=== PATIENT | female | born 1945 | race Caucasian/White ===

== ENCOUNTER 2020-12-18 09:07 | Day surgery (SDC) | payer MEDICARE, MEDICAID, SELFPAY ==
--- NOTE | 2020-12-16 09:29 | HP.PCM_ITS ---
History and Physical Date of Admission: 12/18/20 Henrietta Cortez Physician Specialty: DINKEY ENGINE OPERATOR H&P ? Signed Encounter Date: 12/08/2020 Expand AllCollapse All Expand All by Default Hide copied text Hover for details Pre-Op History and Physical ? HPI: The patient is a 75 year old female presenting for discussion regarding hysteroscopy, D&C, polypectomy. Patient was seen in the office for Endo C and EMB for an endometrial mass. Pathology revealed a benign endometrial polyp. Discussion with the patient as to importance of removal of this mass ensuring that it is benign. Patient would like to proceed with surgery at this time. ? She is scheduled for Hysteroscopy D&C, polypectomy for Endometrial polyp, thickened Endometrium, PMB on 12/18/20. Procedure discussed along with risks, benefits and complications. Other alternatives discussed for management. Consent form signed? Yes. ? ? PAST MEDICAL HISTORY PAST MEDICAL HISTORY Diagnosis Date ? Chronic cough 05/31/2016 ? since 1988 ? Diverticulosis 10/31/2013 ? Elevated blood pressure reading without diagnosis of hypertension 05/31/2016 ? Essential hypertension 08/26/2016 ? Hiatal hernia with GERD and esophagitis 05/31/2016 ? Non morbid obesity due to excess calories 05/31/2016 ? Osteopenia 05/31/2016 ? Pharyngoesophageal dysphagia 08/17/2017 ? Primary osteoarthritis of left knee 01/20/2017 ? ? PAST SURGICAL HISTORY PAST SURGICAL HISTORY Procedure Laterality Date ? APPENDECTOMY ? 1966 ? COLONOSCOP W/ OR W/O BRSH SPEC ? 10/31/2013 ? Colonoscopy ? EGD ? 10/31/2017 ? [place] ? EGD W/O OR W/BRUSH/WASH ? 10/27/2015 ? EGD ? LIGATE FALLOPIAN TUBE ? 1979 ? Tubal ligation ? PAST SURGICAL HISTORY OF Right March2008 ? ORIF right wrist fracture ? REMOVAL GALLBLADDER ? 1985 ? Cholecystectomy ? ? ? CURRENT MEDICATIONS Current Outpatient Medications Medication Sig Dispense Refill ? amLODIPine (NORVASC) 5 mg tablet Take 1 tablet by mouth once daily. 90 tablet 3 ? chlorthalidone (HYGROTON) 25 mg tablet Take 1 tablet by mouth once daily. 90 tablet 3 ? mometasone (ELOCON) 0.1 % cream Apply to affected area once daily. Rash. 45 g 0 ? omeprazole (PRILOSEC) 20 mg capsule Take 1 capsule by mouth once daily. 90 capsule 3 ? losartan (COZAAR) 100 mg tablet Take 1 tablet by mouth once daily. 90 tablet 3 ? multivitamin,qj-nqwf-brqqkyqe (COMPLETE MULTIVITAMIN) tab Take 2 tablets by mouth once daily. ? ? ? calcium carbonate-vitamin D3 600 mg(1,500mg) -800 unit tab Take 1 tablet by mouth twice daily. ? 0 ? No current facility-administered medications for this visit. ? ? ALLERGIES: Boniva [Ibandronate], Latex, Lisinopril, and Nickel ? PERSONAL HISTORY: SOCIAL HISTORY Social History ? Tobacco Use ? Smoking status: Never Smoker ? Smokeless tobacco: Never Used Vaping Use ? Vaping Use: Never used Substance Use Topics ? Alcohol use: No ? Drug use: No ? FAMILY HISTORY: FAMILY HISTORY FAMILY HISTORY Problem Relation Age of Onset ? Hypertension Mother ? ? Coronary Artery Disease Mother ? ? other (tuberculosis) Mother ? ? No Known Problems Brother ? ? Stroke Brother ? ? None Father ? ? not known ? Diabetes Brother ? ? ? Diabetes Maternal Grandmother ? ? No Known Problems Brother ? ? ? REVIEW OF SYMPTOMS: negative except as noted above PHYSICAL EXAMINATION: ? VITALS: Blood pressure 126/68, height 5' 2 (1.575 m), weight 282 lb (127.9 kg). ? GENERAL: The patient is well nourished, well hydrated in no acute distress. , The patient is oriented to time, place, and person. NECK: full range of motion Vaginal Exam: deferred today- performed 11/28/10 ? IMPRESSION: PMB, Thickened Endometrium, Endometrial polyp ? PLAN: Hysteroscopy, D&C, polypectomy with symphion ? Pt has been counseled on risks/benefits and alternatives of surgery including but not limited to anesthesia, bleeding, infection, perforation of uterus with injury to pelvic structures including bowel, bladder, ureters and vessels. Pt wishes to proceed with surgery at this time. ? covid testing reviewed. Hiatal hernia reviewed with Anesthesia- no issue for surgery. Preop clearance on 12/16/20 with PCP- completed and cleared for surgery. ? I have reviewed and updated past medical and surgical history, medications and allergies Henrietta Cortez MD Office Visit on 12/08/2020 Office Visit on 12/08/2020 Note shared with patient
[2020-12-16 10:37] LABS: Hematocrit 40.4 % (37-47); Hemoglobin 13.2 g/dL (12.0-15.0); Mean Corp Hgb Conc 32.7 g/dL (32-36); Mean Corpuscular Hgb 29.5 pg (27.0-32.0); Mean Corpuscular Volume 90.4 fL (81-99); Mean Platelet Vol. 12.3 fl (6.2-12.0); Platelet Count 264 K/mm3 (150-450); RBC Distribution Width CV 14.2 % (11.6-14.6); RBC Distribution Width SD 47.3 fl (35.1-43.9); Red Blood Count 4.47 M/mm3 (4.2-5.4); White Blood Count 8.4 K/mm3 (4.4-11.0)
[2020-12-16 11:05] LABS: Anion Gap 7 (5-15); BUN 21 mg/dL (7-18); Calcium,Total 8.9 mg/dL (8.5-10.1); Chloride 105 mmol/L (98-107); EST Glomerular Filtration Rate 58 mL/min (>60); Est Glom Filt Rate - Afr Amer 70 mL/min (>60); Glucose 92 mg/dL (74-106); Potassium 3.4 mmol/L (3.5-5.1); Sodium Level 140 mmol/L (136-145)
[2020-12-18] VITALS (8 sets, daily range): BP systolic 103–130; BP diastolic 62–94; PULSE 74–89; RESP 16–18; TEMP 36.2–36.3; O2SAT 93–100; BMI 50.8
[2020-12-18] MEDS: Lactated Ringers 1,000 ML 100 ML IV (09:47)
--- NOTE | 2020-12-18 11:00 | VUL_PTH ---
PATIENT: REID BRIONES [place] [facility] [id number] AGE/SX: 75/F ROOM: RE12/18/[address]: Dr. Henrietta Bailey, MDDOB: 1945 BED: DIS: 12/18/2020 SPEC #: [id number] RECD: 12/19/20 07:50 STATUS: CARLITOS HAAS #: [id number] MALINA: 12/18/20 11:[address]: Henrietta Bailey DEPT: SURGICAL PATHOLOGY RECD BY: Latoya Curtis ENTERED: 12/19/20 08:35 SP TYPE: VULVA BX OTHR DR: Dr. Gumaro Arellano MD Tissues: A - Vulva, NOS B - Endometrium, NOS Procedures: Surgery Specimen Level IV HEADER OPERATION: Hysteroscopy, D & C Symphion, polypectomy, resection endometrial PRE-OP DIAGNOSIS: PMB, thickened endometrium, endometrial polyp TISSUE SUBMITTED: A - Vulvar biopsy, B - Endometrial curettings and polyp MICROSCOPIC DIAGNOSIS A. Vulvar biopsy: Consistent with lichen sclerosus. Hyperkeratosis and focal mild chronic inflammation. B. Endometrial curettings and polyp: Polypoid fragments of endometrial tissue with focal simple cystic endometrial hyperplasia without atypia. A fragment of benign ectocervical epithelium. [place]:colby 12/22/2020 MICROSCOPIC DESCRIPTION Slides are reviewed. GROSS DESCRIPTION A - Received in fixative is one container labeled with the patient's name and designated vulvar biopsy. The specimen consists of a punch biopsy of valenzuela-white skin measuring 0.4 cm in diameter and 0.5 cm in length. The entire specimen is submitted in one cassette. B - Received in fixative is one container labeled with the patient's name and designated endometrial curettings and polyp. The specimen consists of multiple irregular fragments of valenzuela soft tissue mixed with hemorrhagic soft tissue that in aggregate measure 2 x 1.5 x 0.1 cm. The specimen is totally submitted in one cassette. / [place]:colby 12/19/20 TC:5 CPT: 09524 x2
--- NOTE | 2020-12-18 11:54 | DCINST_ITS ---
Discharge Diet: No Restrictions Discharge Activity: Return to Normal Activity, May Shower, May Take a Tub Bath - in 2 weeks. May resume sexual activity in: 1 week Call your doctor if you observe: Fever of 101 or Higher, Using more than one pad per hour, Uncontrolled pain Allergies/Adverse Reactions: Allergies latex Allergy (Verified 12/18/20 09:28) Hives ibandronate sodium [From Boniva] Adverse Reaction (Verified 12/18/20 09:28) Upset Stomach lisinopril Adverse Reaction (Verified 12/18/20 09:28) cough metal Allergy (Uncoded 12/18/20 09:28) Rash Medications to take at Discharge Amlodipine [Norvasc] 5 mg PO DAILY 12/12/20 Calcium Carbonate [Elemental Calcium] 1,200 mg PO DAILY 12/12/20 Chlorthalidone 25 mg PO DAILY 12/12/20 Losartan Potassium [Cozaar] 100 mg PO DAILY 12/12/20 Multivitamin with Minerals [Multiple Vitamin] 1 each PO DAILY 12/12/20 Omeprazole [Prilosec] 20 mg PO DAILY 12/12/20 Misoprostol [Cytotec] 200 mcg PO PRN PRN 12/17/20 Primary Care Physician: Gumaro Arellano MD [Primary Care Provider] - Test Results: Test results from this visit will be discussed in further detail at your follow- up appointment, if applicable. Please Follow Up With: Henrietta Bailey MD When: as scheduled in 2 weeks - [phone]
[2020-12-18] MEDS: Lidocaine 1% (30 ml sdv) 30 ML Vial (12:20)
[2020-12-18] MEDS: Silver Nitrate (BKC) 1 EACH (12:21)
--- NOTE | 2020-12-18 12:26 | PCM.OPRPT ---
Report of Operation Date of Procedure: 12/18/20 - start: 1215 end time: 1225 Pre-Operative Diagnosis: Thickened endometrium, Endometrial polyp, pmb Post-Operative Diagnosis: same and vulvar dermatitis Surgery/Procedure Performed:: hysteroscopy, D&C, polypectomy, Vulvar biopsy Description of Surgical Findings:: bilateral tubes visualized. Posterior endometrial polypoid tissue - Vulvar hypopigmentation elliptical fashion from the clitoris down around the anus. Likely consistent with lichen sclerosis. Type of Anesthesia:: Local, MAC Special Medications: 1% lidocaine Specimen's removed: vulvar biopsy, endometrial curettings, Endometrial polyp Drains: none Estimated Blood Loss (mL): 5 Fluids Replaced: 400 Description of Procedure: Informed consent was obtained the patient was taken the operating room she was placed in supine position. She was given anesthesia. She was then placed in the [facility] where she was prepped and draped in the normal sterile fashion. significant vulvar hypopigmentation noted- likely lichen scerlosis. decision to perform vulvar biopsy. Right vulva 3 cc lidocaine injected and 5mm keys punch used to perform biopsy. Silver nitrate used for hemostasis. At this time the weighted speculum was placed in the posterior fornix of vagina. Single-tooth tenaculum was used to gently grasp the anterior lip the cervix. At this time the uterine cavity was sounded to approximately 8 cm. Gentle dilatation was performed once adequate dilatation of the cervix was achieved the hysteroscope using normal saline as a distention medium was placed. Tubal ostia visualized. polypoid tissue on posterior aspect of uterus. Symphion resecting device used to obtain endometrial curettings and to perform polypectomy. Tissue will be sent to pathology for evaluation. Tenaculum removed. Good hemostasis. Instrument, lap count correct x 2. Vaginal Sweep was negative. Grafts/Implants Used: none - Complications none - Admit VTE Documentation VTE Present on Admission: Yes VTE Mechan Device Prophylaxis: SCD's VTE Pharm Prophylaxis ordered?: No
== END 2020-12-18 13:52 | disposition home or self-care (01) ==
LOC: SDC 09:09 → AC 09:09
PROVIDERS: PCP Internal Medicine; Referring Provider Obstetrics & Gynecology; Visit Provider Obstetrics & Gynecology
PROC: 0UB98ZZ Excision of Uterus, Via Natural or Artificial Opening Endoscopic (ICD-10-PCS; CPT 58558; principal; 2020-12-18 10:45)
DX: N84.0 Polyp of corpus uteri (principal); N95.0 Postmenopausal bleeding; N90.4 Leukoplakia of vulva; Z20.828 Contact with and (suspected) exposure to other viral communicable diseases; I10 Essential (primary) hypertension; M85.80 Other specified disorders of bone density and structure, unspecified site; M17.12 Unilateral primary osteoarthritis, left knee; Z79.899 Other long term (current) drug therapy
CPT/HCPCS: 00952; 56605; 58558; 36415; 80048; 85027; 87426; 88305; C9803; J7120; J2405

== ENCOUNTER → 2021-02-04 | Outpatient (CLI) | payer MEDICARE, MEDICAID, SELFPAY ==
[2020-12-18 09:30] VITALS: BMI 50.8
--- NOTE | 2021-02-03 | ASPS_PTH ---
PAT[facility]: REID BRIONES [id number] AGE/SX: 75/F ROOM: RE02/04/[address]: Dr. Ramón Jensen MD : 1945 BED: DIS: 02/04/2021 SPEC #: [id number] RECD: 02/04/21 12:01 STATUS: CARLITOS SAMINA #: [id number] MALINA: 02/03/21 00:[address]: Ramón Jensen DEPT: CYTOLOGY RECD BY: Latoya Curtis ENTERED: 02/04/21 13:00 SP TYPE: ASPIRATION OTHR DR: Dr. Gumaro Arellano MD Tissues: Thyroid gland, NOS Procedures: Special Stain Group II Cytology Other HEADER OPERATION: Right thyroid fine needle aspiration PRE-OP DIAGNOSIS: Multinodular goiter TISSUE SUBMITTED: Right thyroid FNA slides x12 DIAGNOSIS CYTOLOGY Right thyroid nodule, FNA (smears): Consistent with benign follicular nodule. Adequate for evaluation. See comment. [place]:colby 02/05/2021 COMMENT Correlation with clinical, radiologic findings and appropriate follow up are necessary. CYTOLOGY STUDY Slides are reviewed. CYTOLOGY GROSS Received are 12 smears labeled with the patient's name and designated per the requisition as right thyroid. Submitted for staining. / [place] 02/04/2021 TC:5 CPT: 48942
== END | disposition home or self-care (01) ==
LOC: LABSPEC 12:22
PROVIDERS: PCP Internal Medicine; Referring Provider Surgery; Visit Provider Surgery
DX: E04.2 Nontoxic multinodular goiter (principal)
CPT/HCPCS: 88161; 88313